=== PATIENT | female | born 1950 | race Caucasian/White ===

== ENCOUNTER 2018-02-28 21:04 | Emergency (ER) | payer MEDICARE, BC ==
[~2018-02-28] VITALS: Ht 167.6 cm; Wt 60.0 kg
[~2018-02-28 21:04] MED LIST: AMOXICILLIN500 MG OR; CEPHALEXIN500 MG OR; MEDDOSEPAK OR; PEPCID40 MG OR; VISTARIL50 MG OR
[2018-02-28] MEDS ORDERED: TRAMADOL HCL E100 M1 PO (21:47)
[2018-02-28] MEDS ORDERED: CELEBREX100 MG PO (21:48)
[2018-02-28] MEDS ORDERED: PREDNISONE5 MG PO (21:49)
[2018-02-28] MEDS ORDERED: CARVEDILOL3.125 MG PO (21:49)
[2018-02-28] MEDS ORDERED: ZESTRIL10 M1 PO (21:50)
[2018-02-28] MEDS ORDERED: [UNRECOGNIZED DRUG - OTHER] IV (21:54)
[2018-02-28 22:00] LABS: HEMATOCRIT 34.3 % (37.0-47.0); HEMOGLOBIN 10.9 g/dl (12.0-16.0); IMMATURE GRANULOCYTES 0.6 % (0.0-5.0); MEAN CELL VOLUME 91.2 fL CALC (80.0-100.0); MEAN CORPUSCULAR HGB CONC 31.8 g/L CALC (32.0-36.0); NEUT# 13.2 thou/uL (2.00-7.15); RED BLOOD COUNT 3.76 mill/uL (4.20-5.60); RED CELL DISTRI WIDTH 12.6 % (11.5-15.5)
[2018-02-28 22:18] LABS: ALBUMIN 3.6 g/dL (3.2-5.0); ALKALINE PHOSPHATASE 83 u/l (38-126); ANION GAP 14 (6-22 (CALC)); BILIRUBIN, TOTAL 0.4 mg/dL (0.0-1.4); BUN 22 mg/dL (8-23); BUN/CREATININE RATIO 29 (12-20 (CALC)); CARBON DIOXIDE 27 mmol/l (22-30); CHLORIDE 100 mmol/l (95-108); CREATININE 0.8 mg/dL (0.5-1.0); GFR > 60 ML/MIN (>=60 (CALC)); GFR FOR AFR.AMER. > 60 ML/MIN (>=60 (CALC)); SGOT/AST 21 u/l (9-36); SODIUM 137 mmol/l (137-146); TOTAL PROTEIN 6.6 g/dL (6.3-8.2)
[2018-03-01 02:03] VITALS: BP 100/59
== END 2018-03-01 02:10 | disposition short-term general hospital (02) ==
LOC: ED 21:04
PROVIDERS: Emergency Medicine
PROC: 0HQ1XZZ Repair Face Skin, External Approach (ICD-10-PCS; principal; 2018-03-01)
DX: S01.21XA Laceration without foreign body of nose, initial encounter (principal); S01.81XA Laceration without foreign body of other part of head, initial encounter; S02.2XXA Fracture of nasal bones, initial encounter for closed fracture; S00.81XA Abrasion of other part of head, initial encounter; R22.0 Localized swelling, mass and lump, head; Y04.8XXA Assault by other bodily force, initial encounter; Y92.009 Unspecified place in unspecified non-institutional (private) residence as the place of occurrence of the external cause